=== PATIENT | female | born 1980 | race Caucasian/White ===

== ENCOUNTER 2024-01-19 14:17 | Emergency (ER) | payer SELFPAY ==
[2024-01-19 14:36] VITALS: BP 115/82
--- NOTE | 2024-01-19 16:00 | ED.GENMED ---
History of Present Illness
<Arline Rodrigez PA-C - Last Filed: 01/20/24 07:28>
General
Chief Complaint: Fatigue
Source: patient
Time Seen by Provider: 01/19/24 15:40
History of Present Illness
History of Present Illness:
43yoF with a history of anxiety presenting for evaluation of fatigue. She states she has felt unwell all summer. Her symptoms have been worse over the past 2 weeks. Patient states she 'just feels exhausted.' She has multiple symptoms including
lightheadedness, tenderness, chest tightness, indigestion, and early satiety. Patient has not had her menstrual period in about 2 to 3 months. She is unsure if her symptoms are related to perimenopause. She also has a history of a benign brain
cyst and is wondering if her cyst is growing. She denies any anxiety or depression recently. Patient was seen at urgent care prior to arrival and was sent to the ED for evaluation. EKG and CXR were done at urgent care which were reportedly normal.
She denies any syncope or fevers.
Past History
<Arline Rodrigez PA-C - Last Filed: 01/20/24 07:28>
Past History
ED Past Medical History: Psychiatric (Anxiety)
ED Past Surgical History: Appendectomy
Social History
Tobacco: Smoker
Phy Exam
<Arline Rodrigez PA-C - Last Filed: 01/20/24 07:28>
General Physical Exam
General Presentation: well appearing and no apparent distress
General age: appears stated age
General Skin: warm and dry
General Habitus: normal
General Mental: alert
General Hydration: appears well hydrated
Cardiovascular Exam
Cardiovascular Exam: regular rate/rhythm, no edema and no murmur
Pulmonary Exam
Pulmonary Exam: lungs clear, no respiratory distress, no crackles and no wheezing
Gastrointestinal Exam
Gastrointestinal Exam: soft, non distended and other (+Tenderness to epigastrium and suprapubic regions. No guarding or rebound tenderness. )
Skin Exam
Skin Exam: normal color and warm/dry
Psychiatric Exam
Psychiatric Exam: normal mood/affect
Course
<Arline Rodrigez PA-C - Last Filed: 01/20/24 07:28>
Orders/Labs/Results
Orders:
Orders
01/19/24 14:26
Electrocardiogram (*1) Urgent
Reason for Study: Chest Pain
EKG- Treatment ONCE
01/19/24 14:42
CT Head W/o Iv Contrast Urgent
Comment: pt has known cyst on brain
Reason For Exam: fatigued ringing in ear
01/19/24 15:59
CT Abd/pel W Iv And Oral Contr Urgent
Comment:
Reason For Exam: Epigastric pain, early satiety
0.9% Sodium Chloride 1000 ml [Nss] 1,000 ml IV BOLUS
Iohexol [Omnipaque] See Protocol PO NOW STA
Test Result ONCE
01/19/24 16:26
Complete Blood Count/With Diff Urgent
Comprehensive Metabolic Panel Urgent
HCG, Serum Qualitative Screen Urgent
Comment: HCG QUAL ADDED ON BY FLOOR 4:40PM 01-19-24
Lyme Progressive Urgent
TSH Urgent
01/19/24 16:39
Add On- LAB Urgent
Tests Added?: hcg qual
01/19/24 17:29
Urinalysis Reflex To Culture Urgent
Date Specimen was Collected: 01/19/24
Time Specimen was Collected: 17:08
Abnormal Lab Results
01/19/24 01/19/24
16:26 17:29
MCH 31.5 H pg
(27.0-31.0)
BUN 6 L mg/dl
(7-17)
Urine Ketones Trace A
(Negative)
01/19/24 16:26
01/19/24 16:26
Vital Signs
Initial and Last Documented VS:
Initial Vital Signs
Temp Pulse Resp BP Pulse Ox
99.0 F 77 16 115/82 98
01/19/24 14:36 01/19/24 14:36 01/19/24 14:36 01/19/24 14:36 01/19/24 14:36
Last Documented Vital Signs
Temp Pulse Resp BP Pulse Ox
99.0 F 64 18 123/83 99
01/19/24 14:36 01/19/24 18:00 01/19/24 18:00 01/19/24 18:00 01/19/24 18:00
<Eboni Tinajero, FRY COOK - Last Filed: 01/19/24 22:22>
Orders/Labs/Results
Orders:
Orders
01/19/24 14:26
Electrocardiogram (*1) Urgent
Reason for Study: Chest Pain
EKG- Treatment ONCE
01/19/24 14:42
CT Head W/o Iv Contrast Urgent
Comment: pt has known cyst on brain
Reason For Exam: fatigued ringing in ear
01/19/24 15:59
CT Abd/pel W Iv And Oral Contr Urgent
Comment:
Reason For Exam: Epigastric pain, early satiety
0.9% Sodium Chloride 1000 ml [Nss] 1,000 ml IV BOLUS
Iohexol [Omnipaque] See Protocol PO NOW STA
Test Result ONCE
01/19/24 16:26
Complete Blood Count/With Diff Urgent
Comprehensive Metabolic Panel Urgent
HCG, Serum Qualitative Screen Urgent
Comment: HCG QUAL ADDED ON BY FLOOR 4:40PM 01-19-24
Lyme Progressive Urgent
TSH Urgent
01/19/24 16:39
Add On- LAB Urgent
Tests Added?: hcg qual
01/19/24 17:29
Urinalysis Reflex To Culture Urgent
Date Specimen was Collected: 01/19/24
Time Specimen was Collected: 17:08
Abnormal Lab Results
01/19/24 01/19/24
16:26 17:29
MCH 31.5 H pg
(27.0-31.0)
BUN 6 L mg/dl
(7-17)
Urine Ketones Trace A
(Negative)
01/19/24 16:26
01/19/24 16:26
Vital Signs
Initial and Last Documented VS:
Initial Vital Signs
Temp Pulse Resp BP Pulse Ox
99.0 F 77 16 115/82 98
01/19/24 14:36 01/19/24 14:36 01/19/24 14:36 01/19/24 14:36 01/19/24 14:36
Last Documented Vital Signs
Temp Pulse Resp BP Pulse Ox
99.0 F 64 18 123/83 99
01/19/24 14:36 01/19/24 18:00 01/19/24 18:00 01/19/24 18:00 01/19/24 18:00
<Arline Rodrigez PA-C - Last Filed: 01/20/24 07:28>
MDM/Problems Addressed
Differential Diagnosis Includes:
43yoF here with multiple complaints including fatigue, early satiety, and SOB. Ongoing x several weeks. Sent here by urgent care. She is afebrile and hemodynamically stable. She is well-appearing in no acute distress. There is epigastric and
suprapubic abdominal tenderness on exam without signs of peritonitis. Differential diagnosis includes but is not limited to: Thyroid dysfunction, dehydration, perimenopause, malignancy, arrhythmia
Initial ED plan: Check cardiac labs, TSH, EKG, and CT abdomen. Chest x-ray done at urgent care was reportedly normal. Patient also requesting Lyme testing which was ordered. CT head was ordered in triage which is unremarkable. IV fluid bolus
<Arline Rodrigez PA-C - Last Filed: 01/20/24 07:28>
*EKG
EKG Intrepretation Date: 01/19/24
Heart Rate: 70
Rate: normal
Rhythm: sinus
[place]: normal axis
Interval: normal interval
QRS Pattern: normal QRS
Ischemia: no ischemia
<Eboni Tinajero FRY COOK - Last Filed: 01/19/24 22:22>
*Critical Care Note
Total Time (30-74mins, 75-104mins- exclusive of procedures): Not Applicable
<Arline Rodrigez PA-C - Last Filed: 01/20/24 07:28>
Update Note
Update Note:
Labs unremarkable including normal blood counts, electrolytes, renal function, TSH. UA bland without signs of infection. EKG shows normal sinus rhythm without ectopy or ischemic changes. Patient signed out to Eboni Tinajero prior to CT abdomen
results. Final disposition pending.
ED Attending Note
<Arline Rodrigez PA-C - Last Filed: 01/20/24 07:28>
-
Portions of this chart may have been created with voice recognition software.� Occasional wrong word or��sound alike� substitutions may have occurred due to the inherent limitations of voice recognition software.
Discharge Plan
Departure
Patient Disposition: Home (Routine Discharge)
Date of Disposition: 01/19/24
Time of Disposition: 19:59
Patient with high blood pressure during this ER visit?: No
Condition: Good
Covid-19: Not Applicable
Discharge Problem:
Fatigue
Instructions: Fatigue (DC)
Prescriptions:
No Action
alprazolam 1 MG tablet
1 mg PO HSPRN PRN (Reason: insomnia/anxiety)
zolmitriptan [Zomig] 5 MG spray,non-aerosol
5 mg NS PRN PRN (Reason: headache)
duloxetine 60 MG capsule,delayed release(DR/EC)
60 mg PO DAILY
erenumab-aooe [Aimovig Autoinjector] 70 MG/ML auto-injector
70 mg SQ MONTHLY
Magnesium Oxide:
400 mg PO BID
Referrals:
Clara Wick CRNP [Family Provider] - Tomorrow
Activity Restrictions/Additional Instructions:
Follow up with your health economist for further evaluation of possible uterine fibroid.
Interventions
Interventions:
*Risk Screen - Suicide Last Done: 01/19/24 16:50
*General Assessment Last Done: 01/19/24 16:50
*Neglect/Abuse Screening Last Done: 01/19/24 16:50
ED- Fall Risk Assessment Last Done: 01/19/24 16:50
*Nursing Disposition Last Done: 01/19/24 20:17
Discharge Date and Time
Discharge Date/Time: 01/19/24 20:18
Print Language: [place]
[2024-01-19] MEDS: OMNIPAQUE 50 ML PO (16:35)
[2024-01-19 16:36] LABS: % Basophils 0.5 % (0-2); % Eosinophils 1.4 % (0-6); % Immature Granulocytes 0.2 % (0-0.5); % Lymphocytes 25.7 % (20.5-51.1); % Monocytes 8.8 % (1.7-9.3); % Neutrophils 63.4 % (42.2-75.2); Absolute Eosinophils 0.1 10^3/uL (0-0.7); Absolute Lymphocytes 1.4 10^3/uL (1.2-3.4); Absolute Monocytes 0.5 10^3/uL (0.1-0.6); Absolute Neutrophils 3.6 10^3/uL (1.4-6.5); Hematocrit 38.2 % (37.0-47.0); Hemoglobin 13.5 g/dL (12.0-16.0); Mean Corp Hgb Conc. 35.3 g/dL (33.0-37.0); Mean Corpuscular Hgb 31.5 pg (27.0-31.0); Mean Platelet Volume 9.7 fL (7.4-10.4); Nucleated Red Blood Cells % 0 %; Platelet Count 237 10^3/uL (130-400); Red Blood Cell Count 4.29 10^6/uL (4.20-5.40); Red Cell Dist. Width 12.5 % (11.5-14.5); White Blood Cell Count 5.6 10^3/uL (4.8-10.8)
[2024-01-19] MEDS: NSS 1000 IV (16:36)
[2024-01-19 16:57] LABS: HCG, Serum Qualitative Screen Negative
[2024-01-19 17:00] VITALS: BP 118/85
[2024-01-19 17:02] LABS: ALT (SGPT) 26 U/L (0-35); AST (SGOT) 30 U/L (14-36); Albumin 4.3 g/dl (3.5-5.0); Alkaline Phosphatase 64 U/L (38-126); Blood Urea Nitrogen 6 mg/dl (7-17); Calcium 9.6 mg/dl (8.4-10.2); Carbon Dioxide 26 mmol/L (22-30); Chloride 103 mmol/L (98-107); Glucose 78 mg/dl (70-99); Potassium 4.1 mmol/L (3.5-5.1); Sodium 136 mmol/L (135-145); Total Bilirubin 0.4 mg/dl (0.2-1.3); Total Protein 6.5 g/dl (6.3-8.2); eGFR > 60.00
[2024-01-19 17:31] LABS: TSH 1.05 uIU/ml (0.47-4.68)
[2024-01-19 17:35] LABS: Urine Albumin Negative (Neg - Trace); Urine Bilirubin Negative (Negative); Urine Character Clear (Clear); Urine Color Yellow; Urine Glucose Negative (Negative); Urine Ketone Trace (Negative); Urine Leukocyte Negative (Negative); Urine Nitrite Negative (Negative); Urine Occult Blood Negative (Negative); Urine Urobilinogen Negative (Neg - 1+)
[2024-01-19 18:00] VITALS: BP 123/83
[2024-01-23 11:51] LABS: Lyme Antibody Screen, EIA Negative (Negative)
== END 2024-01-19 20:18 | disposition home or self-care (01) ==
LOC: EMR 14:17
PROVIDERS: Physician Assistant; EMERGENCY PHYSICIAN Emergency Medicine; FAMILY PHYSICIAN Family Medicine Adult Medicine
DX: R53.83 Other fatigue (principal); F17.200 Nicotine dependence, unspecified, uncomplicated
CPT/HCPCS: 99285; 96360; 70450; 74177; 80053; 81003; 84443; 84703; 85025; 86618; 93005; Q9967

== ENCOUNTER 2024-08-08 23:39 | Emergency (ER) | payer OTHER, SELFPAY ==
[2024-08-08 23:50] VITALS: BP 142/83
[2024-08-09] MEDS: TORADOL 15 MG IV (00:07)
[2024-08-09] MEDS: ZOFRAN 4 MG IV (00:07)
[2024-08-09 00:19] LABS: Urine Albumin 2+ (Neg - Trace); Urine Bilirubin Negative (Negative); Urine Character Clear (Clear); Urine Glucose Negative (Negative); Urine Ketone Negative (Negative); Urine Leukocyte 3+ (Negative); Urine Nitrite Positive (Negative); Urine Urobilinogen 1+ (Neg - 1+)
[2024-08-09 00:20] LABS: % Basophils 0.4 % (0-2); % Immature Granulocytes 0.3 % (0-0.5); % Lymphocytes 23.4 % (20.5-51.1); % Monocytes 7.7 % (1.7-9.3); % Neutrophils 65.2 % (42.2-75.2); Absolute Eosinophils 0.2 10^3/uL (0-0.7); Absolute Lymphocytes 1.8 10^3/uL (1.2-3.4); Absolute Monocytes 0.6 10^3/uL (0.1-0.6); Absolute Neutrophils 5.1 10^3/uL (1.4-6.5); Hemoglobin 13.2 g/dL (12.0-16.0); Mean Corp Hgb Conc. 33.8 g/dL (33.0-37.0); Mean Corpuscular Hgb 31.7 pg (27.0-31.0); Mean Corpuscular Volume 93.8 fL (81.0-99.0); Mean Platelet Volume 9.5 fL (7.4-10.4); Nucleated Red Blood Cells % 0 %; Platelet Count 261 10^3/uL (130-400); Red Blood Cell Count 4.16 10^6/uL (4.20-5.40); Red Cell Dist. Width 13.2 % (11.5-14.5); White Blood Cell Count 7.9 10^3/uL (4.8-10.8)
[2024-08-09 00:24] LABS: Urine Color Orange; Urine Occult Blood 4+ (Negative)
[2024-08-09 00:35] LABS: ALT (SGPT) 25 U/L (0-35); AST (SGOT) 31 U/L (14-36); Albumin 4.6 g/dl (3.5-5.0); Alkaline Phosphatase 65 U/L (38-126); Blood Urea Nitrogen 6 mg/dl (7-17); Calcium 8.6 mg/dl (8.4-10.2); Carbon Dioxide 30 mmol/L (22-30); Chloride 97 mmol/L (98-107); Glucose 78 mg/dl (70-99); Potassium 3.8 mmol/L (3.5-5.1); Sodium 135 mmol/L (135-145); Total Bilirubin 0.4 mg/dl (0.2-1.3); Total Protein 6.9 g/dl (6.3-8.2); eGFR > 60.00
[2024-08-09 00:45] LABS: HCG, Serum Qualitative Screen Negative
[2024-08-09 01:25] LABS: Urine Bacteria Moderate (Negative); Urine White Cell 50-60 /HPF (0-5)
[2024-08-09 03:59] VITALS: BP 108/68; BMI 24.0
[2024-08-09 04:00] VITALS: BP 97/72
[2024-08-09 05:00] VITALS: BP 106/74
--- NOTE | 2024-08-09 05:07 | ED.GENMED ---
Addendum entered and electronically signed by Chintan Clemente PA-C 08/11/24 09:55:
Urine culture shows greater than 100,000 colony-forming units of presumptive E. coli. Sensitivities pending. On Augmentin
Original Note:
History of Present Illness
General
Chief Complaint: Urinary Symptoms
Source: patient
Exam Limitations: none
Time Seen by Provider: 08/09/24 04:56
Nursing documentation reviewed up to this point in time: agreed with
History of Present Illness
History of Present Illness:
This is a 44-year-old woman with history of migraine headaches, anxiety who presents with 4-day history of UTI symptoms, initially mild, UTI symptoms have worsened over the past 24 hours with onset of some left lateral flank pain, left lower
quadrant pain this evening. She has not noticed a fever nor chills but was noted to have borderline low-grade fever of 99.2 �F upon arrival this evening.
History of rare UTIs in the past, no history of pyelonephritis nor kidney stones.
She denies nausea or vomiting, denies diarrhea or constipation.
Pain is markedly improved/resolved after an IV dose of Toradol and Zofran.
Past History
Past History
ED Past Medical History: Psychiatric (Anxiety) and Other (Migraine headaches)
ED Past Surgical History: Appendectomy
Social History
Tobacco: Smoker
Alcohol: Former
Drug: None
Living: with family
Employment: Employed
Family History
Family History: Other (Noncontributory)
Phy Exam
Physical Exam
Physical Exam:
GENERAL: 44-year-old woman sleeping upon initially entering exam room. Easily awakens and once awake she is bright alert, pleasant, appears in no acute distress. Afebrile.
EYE: anicteric
NECK: Supple, nontender, no meningismus, no significant adenopathy.
ENT: oral mucosa is moist. No rhinorrhea.
CARDIAC: Regular rate and rhythm. no murmur.
LUNGS: Clear breath sounds bilaterally, no acute respiratory distress, no wheezes/rales/rhonchi
ABDOMEN: Soft, nondistended, without focal tenderness, no r/g, no cvat. normoactive BS.
NEUROLOGICAL: Alert and oriented x3, no focal neuro deficits. Gait is steady.
SKIN: Warm and dry, normal color, skin intact. No rash.
MUSCULOSKELETAL: No C/C/E. peripheral pulses are full and equal b/l. No palpable tenderness.
PSYCH: Normal and appropriate interaction.
Course
Orders/Labs/Results
Orders:
Orders
08/08/24 23:52
UA Reflex to Culture [Urinalysis Reflex To Culture] Urgent
Date Specimen was Collected: 08/08/24
Time Specimen was Collected: 23:52
08/08/24 23:53
Complete Blood Count/With Diff Urgent
Comprehensive Metabolic Panel Urgent
08/09/24 00:03
Ondansetron Injectable [Zofran] 4 mg .ROUTE .STK-MED ONE
08/09/24 00:04
Ketorolac [Toradol] 15 mg .ROUTE .STK-MED ONE
08/09/24 00:06
Ondansetron Injectable [Zofran] 4 mg IV NOW STA
08/09/24 00:07
Ketorolac [Toradol] 15 mg IV NOW STA
08/09/24 00:09
HCG, Serum Qualitative Screen Urgent
Comment: ADD ON
Urine Microscopic Reflex Cult Urgent
Urine Culture Urgent
MARJORIE Source: U
Specimen Description:
Date Specimen was Collected: 08/08/24
Time Specimen was Collected: 23:52
08/09/24 00:12
CT Abd/pelvis Wo Iv Cont Urgent
Comment:
Reason For Exam: lt. flank pain
08/09/24 00:35
Add On- LAB Urgent
Tests Added?: hcg
08/09/24 05:06
Amoxicillin 875 mg/Clav 125 mg [Augmentin 875 mg/125 mg] 1 tablet PO NOW STA
Abnormal Lab Results
08/09/24
00:09
RBC 4.16 L 10^6/uL
(4.20-5.40)
MCH 31.7 H pg
(27.0-31.0)
Chloride 97 L mmol/L
(98-107)
BUN 6 L mg/dl
(7-17)
Ur Occult Blood Reflex 4+ A
(Negative)
Urine Nitrite (Reflex) Positive A
(Negative)
Leukocyte Esterase Rfl 3+ A
(Negative)
Urine RBC 11-15 A /HPF
(0-2)
Urine WBC (Reflex) 50-60 A /HPF
(0-5)
Urine Bacteria (Reflex) Moderate A
(Negative)
Urine Albumin (Reflex) 2+ A
(Neg - Trace)
08/09/24 00:09
08/09/24 00:09
Vital Signs
Initial and Last Documented VS:
Initial Vital Signs
Temp Pulse Resp BP Pulse Ox
99.2 F 88 16 142/83 100
08/08/24 23:50 08/08/24 23:50 08/08/24 23:50 08/08/24 23:50 08/08/24 23:50
Last Documented Vital Signs
Temp Pulse Resp BP Pulse Ox
99.2 F 88 16 97/72 99
08/08/24 23:50 08/08/24 23:50 08/08/24 23:50 08/09/24 04:00 08/09/24 04:00
MDM/Problems Addressed
Differential Diagnosis Includes:
Concern for UTI, pyelonephritis, other consideration is ureteric stone, ovarian cyst, ovarian torsion, colitis, diverticulitis.
Overall exam is benign without appreciable tenderness.
She remains hemodynamically stable.
Labs are reassuring, within normal limits. hCG is negative.
Urinalysis consistent with UTI showing moderate bacteria, 50-60 WBCs, 11-15 RBCs.
With microscopic hematuria, left lower quadrant to left flank pain, must consider ureteric stone thus CT of the abdomen pelvis performed which is unremarkable.
I suspect UTI with early pyelonephritis.
Will treat with 10-day course of Augmentin.
Discussed importance of remaining well-hydrated on a daily basis.
Recommend Tylenol versus ibuprofen as needed for fever, pain.
Prompt follow-up with PCP for recheck.
Urine culture is pending.
*Radiology
Radiology exam reviewed: radiology read reviewed
*Pulse Oximetry
Patient hypoxic: no
*Critical Care Note
Total Time (30-74mins, 75-104mins- exclusive of procedures): Not Applicable
ED Attending Note
-
Portions of this chart may have been created with voice recognition software.� Occasional wrong word or��sound alike� substitutions may have occurred due to the inherent limitations of voice recognition software.
Discharge Plan
Departure
Patient Disposition: Home (Routine Discharge)
Date of Disposition: 08/09/24
Time of Disposition: 05:07
Patient with high blood pressure during this ER visit?: No
Condition: Good
Discharge Problem:
Acute cystitis, concern for early pyelonephritis
Instructions: Urinary Tract Infection, Adult (DC)
Prescriptions:
New
amoxicillin-pot clavulanate 875-125 mg tablet
1 tab PO BID Qty: 20 0RF
No Action
alprazolam 1 MG tablet
1 mg PO HSPRN PRN (Reason: insomnia/anxiety)
zolmitriptan [Zomig] 5 MG spray,non-aerosol
5 mg NS PRN PRN (Reason: headache)
duloxetine 60 MG capsule,delayed release(DR/EC)
60 mg PO DAILY
erenumab-aooe [Aimovig Autoinjector] 70 MG/ML auto-injector
70 mg SQ MONTHLY
Magnesium Oxide:
400 mg PO BID
Referrals:
Damien Aguilar MD [Family Provider] - Call in 1-3 days for appt
Interventions
Interventions:
*Risk Screen - Suicide Last Done: 08/08/24 23:44
*General Assessment Last Done: 08/08/24 23:50
*Neglect/Abuse Screening Last Done: 08/08/24 23:50
ED- Fall Risk Assessment Last Done: 08/09/24 05:05
*ED COVID-19 Vaccine History Last Done: 08/08/24 23:50
*Nursing Disposition Last Done: 08/09/24 05:05
ED-Female Genitourinary Assessment Last Done: 08/09/24 03:59
Discharge Date and Time
Print Language: [place]
[2024-08-09] MEDS: AUGMENTIN 875 MG/125 MG 1 TABLET PO (05:09)
== END 2024-08-09 05:14 | disposition home or self-care (01) ==
LOC: EMR 23:39
PROVIDERS: EMERGENCY PHYSICIAN Emergency Medicine; FAMILY PHYSICIAN Family Medicine
DX: N30.00 Acute cystitis without hematuria (principal); F17.200 Nicotine dependence, unspecified, uncomplicated; Z90.49 Acquired absence of other specified parts of digestive tract
CPT/HCPCS: 99284; 96374; 96375; 74176; 80053; 81003; 81015; 84703; 85025; 87077; 87086

== ENCOUNTER → 2024-10-01 09:47 | Outpatient (REF) | payer OTHER, SELFPAY | LOC: RAD 09:47 | PROVIDERS: ATTENDING PHYSICIAN Student in an Organized Health Care Education/Training Program | DX: R10.2 Pelvic and perineal pain (principal) | CPT/HCPCS: 76830; 76856 ==

== ENCOUNTER → 2024-10-29 12:04 | Outpatient (REF) | payer OTHER, SELFPAY | LOC: WDC 12:04 | PROVIDERS: ATTENDING PHYSICIAN Student in an Organized Health Care Education/Training Program | DX: Z12.31 Encounter for screening mammogram for malignant neoplasm of breast (principal) | CPT/HCPCS: 77063; 77067 ==

== ENCOUNTER → 2025-03-13 12:43 | Outpatient (REF) | payer OTHER, SELFPAY | LOC: WDC 12:43 | PROVIDERS: ATTENDING PHYSICIAN Student in an Organized Health Care Education/Training Program | DX: R92.2 Inconclusive mammogram (principal) | CPT/HCPCS: 76641 ==